=== PATIENT | male | born 1965 | race Caucasian/White ===

== ENCOUNTER 2020-07-07 10:37 | Emergency (ER) | payer MEDICARE, MEDICAID ==
[~2020-07-07] VITALS: Ht 185.4 cm; Wt 91.8 kg
[2020-07-07 11:06] VITALS: BP 143/88
[2020-07-07] MEDS ORDERED: oxymetazoline 15 ML nasal spray NS ONE (14:10)
== END 2020-07-07 14:58 | disposition home or self-care (01) ==
LOC: ER 10:38
DX: R04.0 Epistaxis (principal); F17.200 Nicotine dependence, unspecified, uncomplicated
CPT/HCPCS: 99281